=== PATIENT | female | born 1980 | race Caucasian/White ===

== ENCOUNTER 2017-10-27 16:22 | Emergency (ER) | payer OTHER ==
[2017-10-27 18:30] VITALS: BP 117/69
--- NOTE | 2017-10-27 18:38 | UC ---
Eye Complaint HPI - HPI Summary HPI Summary: c/o redness and discharge left eye for the past 3 days, denies fever, denies blurred vision but c/o not being able to open eye - History of Current Complaint Chief Complaint: UCEye Stated Complaint: EYE COMPLAINT Time Seen by Provider: 10/27/17 18:31 Hx Last Menstrual Period: 10/27/17 - Allergies/Home Medications Allergies/Adverse Reactions: Allergies Allergy/AdvReac Type Severity Reaction Status Date / Time No Known Allergies Allergy Verified 10/27/17 16:49 PMH/Surg Hx/FS Hx/Imm Hx Previously Healthy: Yes - Surgical History Surgical History: Yes Surgery Procedure, Year, and Place: polyp removal 2011 - Social History Alcohol Use: Rare Substance Use Type: Marijuana Smoking Status (MU): Former Smoker Review of Systems Constitutional: Negative Eyes: Drainage All Other Systems Reviewed And Are Negative: Yes Physical Exam Triage Information Reviewed: Yes Vital Signs: Initial Vital Signs Temp 98.8 F 10/27/17 16:50 Pulse 72 10/27/17 16:50 Resp 16 10/27/17 16:50 BP 101/60 10/27/17 16:50 Pulse Ox 99 10/27/17 16:50 Vital Signs Reviewed: Yes Eyes: Positive: Conjunctiva Inflamed - discharge on eyelids. No surrounding soft tissue swelling Eye Complaint Course/Dx - Course Course Of Treatment: conjunctivitis left eye. Normal saline irrigation, medication prescribed to apply on eyes for 5 days - Differential Dx/Diagnosis Provider Diagnoses: left eye conjunctivitis Discharge - Discharge Plan Condition: Stable Disposition: HOME Patient Education Materials: Conjunctivitis (ED) Referrals: No Primary Care Phys,NOPCP [Primary Care Provider] -
== END 2017-10-27 18:48 | disposition home or self-care (01) ==
LOC: UCEAST 16:22
DX: H10.9 Unspecified conjunctivitis (principal); Z87.891 Personal history of nicotine dependence
CPT/HCPCS: 99202; G0463